=== PATIENT | male | born 1955 | race Caucasian/White ===

== ENCOUNTER → 2023-06-28 | Outpatient (CLI) | payer MEDICARE ==
--- NOTE | 2023-06-28 19:19 | CT ---
EXAMINATION TYPE: CT chest wo con. High-resolution technique. DATE OF EXAM: 06/28/2023 COMPARISON: None HISTORY: Chronic cough CT DLP: 982.9 mGycm. Automated Exposure Control for Dose Reduction was Utilized. TECHNIQUE: CT scan of the thorax is performed without IV contrast. Exam was performed according to t high-resolution technique. Supine and prone images of the thorax were obtained without contrast. FINDINGS: There is no suspicious lung mass or nodule. There is no abnormal airspace/consolidative density or abnormal interstitial density. There is no hon eycombing or bronchiectasis. There is no groundglass density. There is no pleural effusion, pleural thickening or pneumothorax. The great vessels chest are normal and there is no mediastinal, hilar or axillary adenopathy. No focal osseous lesions are seen. Limited scans through the upper abdomen reveals no gross abnormality. IMPRESSION: 1. No suspicious lung mass or nodule. 2. No acute cardiopulmonary disease. 3. No CT evidence of interstitial lung disease.
== END | disposition home or self-care (01) ==
LOC: RADCTMAIN 15:25
PROVIDERS: ATTEND Internal Medicine Critical Care Medicine
DX: J84.9 Interstitial pulmonary disease, unspecified (principal); R05.3 Chronic cough
CPT/HCPCS: 71250

== ENCOUNTER 2023-07-31 11:40 | Day surgery (SDC) | payer MEDICARE ==
[~2023-07-31 11:40] MED LIST: ATROPINE SULFATE 0.4 MG/ML 1 ML VIAL IM ONE; LACTATED RINGERS 1,000 ML IV SCH; LIDOCAINE 1% (10MG/ML) FOR IV START INTRADERMA PRN
[2023-07-31] MEDS: LACTATED RINGERS 1,000 ML IV SCH (12:23)
[2023-07-31] MEDS ORDERED: KETAMINE HCL IN 0.9 % NACL 50 MG/5 ML SYRINGE ONE (12:26)
[2023-07-31] MEDS ORDERED: MIDAZOLAM 2 MG/2 ML VIAL ONE (12:26)
[2023-07-31] MEDS ORDERED: LIDOCAINE 1% INJ 10MG/ML (20 ML MDV) ONE (12:26)
[2023-07-31] MEDS ORDERED: fentaNYL (PF) 50 MCG/ML 2 ML AMP ONE (12:26)
[2023-07-31] MEDS ORDERED: PROPOFOL 10 MG/ML 20 ML VIAL IV ONE (12:26)
[2023-07-31 12:27] VITALS: TEMP 97.3
[2023-07-31] MEDS: LIDOCAINE 2% INJ 20 MG/ML INTRATRACH ONE (12:46)
[2023-07-31 13:11] VITALS: BP 125/87; PULSE 85; RESP 15
--- NOTE | 2023-07-31 13:29 | PCN ---
PROCEDURE NOTE PULMONARY/CRITICAL CARE PROCEDURE NOTE: PROCEDURES PERFORMED: Bronchoscopy, airway examination, therapeutic lavage, BAL right middle lobe, brushes tracheal viral, endobronchial biopsies, tracheal viral. PREOPERATIVE DIAGNOSIS: Chronic cough. POSTOPERATIVE DIAGNOSIS: Chronic cough. WASHERY BOSS: Dr. Crandall. FIRST THIRD MATE: Dr. Leia Wright. The patient's procedure took place in room #1 [facility]. There was informed consent and universal timeout. ANESTHESIA: Anesthesia services provided general anesthesia. DESCRIPTION OF PROCEDURE: Once the patient was adequately sedated and being fully monitored, the bronchoscope was inserted through the right nostril. It passed through the right nasopharynx into the oropharynx. The hypopharynx was identified. The hypopharyngeal structures including anterior commissure, true cords, false cords, arytenoids, piriform sinuses right and left, all appeared normal. The glottic opening was topicalized with lidocaine. The bronchoscope was pushed through the glottic opening into the trachea. 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 The trachea was somewhat tortuous. Tracheal viral was unusually broad. It appeared to be inflamed. It was not sharp as it should look. Next, we topicalized right mainstem and left mainstem bronchi. The right upper lobe and its 3 segments, right middle lobe and its 2 segments, right lower lobe and its 5 segments, left upper lobe proper and its 2 segments, lingula and its 2 segments, the left lower lobe and its 4 segments, all had similar findings of diffuse moderate bronchitis or airway hyperemia and erythema. There was some mucosal friability. There was some vascular engorgement. There was no dominant mass or tumor. There were some secretions noted throughout. They were suctioned without difficulty. Next, we did a BAL in the right middle lobe. A 30 mL of fluid was recovered for analysis. Subsequent to that, we did brushings of the tracheal viral. We also did multiple endobronchial biopsies of the tracheal viral. The patient tolerated the procedure well. There was no significant bleeding. The bronchoscope will be withdrawn and the patient will be recovered. MMODL / IJN: [id number] /
[2023-07-31 19:47] LABS: Appearance,BF Bloody (Clear); RBC, Body Fluid 53250 /UL (0-2000)
[2023-08-01 15:02] LABS: Nucleated Cells, Body Fluid 70 /UL
== END 2023-07-31 13:27 | disposition home or self-care (01) ==
LOC: ORWHC2ENDO 11:40
PROVIDERS: ATTEND Internal Medicine Critical Care Medicine
DX: J98.4 Other disorders of lung (principal); Z98.890 Other specified postprocedural states
CPT/HCPCS: 88305; 89050; 88342; 88341; 87070; 87205; 87116; 87102; 87206; 31625; 31623; 31624; J2001 ×2; J2250; J3010; J2704; 88104; 88108